=== PATIENT | female | born 1950 | race Two or more races ===

== ENCOUNTER 2017-07-21 19:54 | Emergency (ER) | payer MEDICARE ==
[~2017-07-21] VITALS: Ht 154.9 cm; Wt 77.1 kg
[2017-07-21 20:27] LABS: Basophils # (auto) 0 uL; Basophils % (auto) 0.5 % (0.0-2.0); CONDITION Y; Eosinophils # (auto) 0.4 uL; Hemoglobin 13.8 g/dL (12.2-16.2); SUSPECT SEE PRINTOUT
[2017-07-21 20:33] LABS: Eosinophils % (auto) 5.7 % (0.0-7.0); Hematocrit 41.5 % (36.0-46.0); Lymphocytes # (auto) 1.5 uL; Lymphocytes % (auto) 22.9 % (10.0-50.0); Mean Corpuscular Hemoglobin 30.1 pg (28.0-32.0); Mean Corpuscular Hgb Conc. 33.3 g/dL (32.0-36.0); Mean Corpuscular Volume 90.2 fL (80.0-100.0); Mean Platelet Volume 11.3 fL (7.4-10.4); Monocytes % (auto) 14.9 % (0.0-12.0); Neutrophils # (auto) 3.7 uL; Platelet Count (auto) 92 10^3/uL (140-450); Red Cell Distribution Width 15.4 % (11.6-16.0); White Blood Cell 6.7 10^3/uL (4.4-10.8)
[2017-07-21 20:44] LABS: INR 0.95 (0.9-1.15); Prothrombin Time 10.4 sec (9.37-12.3)
[2017-07-21 20:48] LABS: Albumin 3.6 g/dL (3.4-5.0); Amylase 14 U/L (25-115); Anion Gap 10 (5-15); Aspartate Aminotransferase 19 U/L (15-37); BUN/Creatinine Ratio 18.8; Blood Urea Nitrogen 12 mg/dL (7-18); Carbon Dioxide 21 mmol/L (21-32); Chloride 113 mmol/L (98-107); GFR African American 119 mL/min; GFR Non-African American 98 mL/min; Glucose 93 mg/dL (74-106); Potassium 3.9 mmol/L (3.5-5.1); Sodium 144 mmol/L (136-145)
[2017-07-21 20:53] LABS: Alkaline Phosphatase 79 U/L (45-117); Bilirubin, Total 0.3 mg/dL (0.2-1.0); Total Protein 7.5 g/dL (6.4-8.2)
[2017-07-21 21:27] LABS: Urine Bilirubin Negative (Negative); Urine Blood Negative /uL (Negative); Urine Color Yellow (Yellow); Urine Glucose Normal (Normal); Urine Ketone Negative (Negative); Urine Mucus FEW (None Seen); Urine Nitrite Negative (Negative); Urine RBC <1 /hpf (0 - 4); Urine Squamous Epithelial Cell FEW /hpf (<5); Urine Urobilinogen Normal (Negative); Urine pH 5.5 (5.0-8.0)
[2017-07-21 21:45] LABS: Giant Platelets Few; Large Platelets FEW; Platelet Estimate Decreased
[2017-07-22] MEDS ORDERED: ONDANSETRON HCL 4 MG/2 ML VIAL IV ONE (04:45)
[2017-07-22] MEDS ORDERED: metroNIDAZOLE 500 MG TAB PO ONE (04:45)
[2017-07-22] MEDS ORDERED: SODIUM CHLORIDE 0.9% 1,000 ML IV ONE (04:45)
[2017-07-22 05:12] VITALS: BP 140/79
== END 2017-07-22 06:31 | disposition home or self-care (01) ==
LOC: ER 20:00
DX: K57.30 Diverticulosis of large intestine without perforation or abscess without bleeding (principal); K52.9 Noninfective gastroenteritis and colitis, unspecified; Z88.0 Allergy status to penicillin; Z88.1 Allergy status to other antibiotic agents; M06.9 Rheumatoid arthritis, unspecified; M32.9 Systemic lupus erythematosus, unspecified
CPT/HCPCS: 36415; 74176; 80053; 81001; 82150; 83690; 84484; 85025; 85610; 85730; 87045; 87493; 87899; 93005; 96361; 96374; 99285; J2405

== ENCOUNTER → 2022-01-16 | Day surgery (SDC) | payer OTHER ==
[~2022-01-16] VITALS: Ht 149.9 cm; Wt 68.0 kg
[~2022-01-16] MED LIST: BUPIVACAINE W/ EPINEPH 0.25% INJ 50ML MDV ONE; CLINDAMYCIN 600MG IV 50 ML IV ONE; DexAMETHasone SOD PHOS 10MG/1ML VIAL INJ ONE; EZET10TA22 PO; GABA100C9 PO; HYDROmorphone HCL 2 MG/ML VL IV PRN; IOHEXOL 300 MG/ML 100ML BOTTLE IJ ONE; LABETALOL HCL 5 MG/ML 4ML SYRINGE IV PRN; LEVO25TA6 PO; LIDOCAINE W/ EPINEPHRINE 2% INJ 20ML VIAL ONE; LORA-622 PO; LOSA-39 PO; METH2.5T PO; MIDAZOLAM HCL 2MG/2ML 2ml VIAL (1mg/ml) IV PRN; MIDAZOLAM HCL 2MG/2ML 2ml VIAL (1mg/ml) ONE; MORPHINE SULFATE 4 MG/ML SYR/VIAL IV PRN; OMEP20TA PO; ONDANSETRON HCL 4 MG/2 ML VIAL IV PRN; PROPOFOL 10 MG/ML 20 ML IV ONE; ePHEDrine SULFATE 50 MG/ML AMP IV PRN; fentaNYL CITRATE 100 MCG/2 ML VL ONE
[2022-01-16 07:50] LABS: INR 0.97 (0.9-1.15)
[2022-01-16 09:19] VITALS: BP 119/54
== END | disposition home or self-care (01) ==
LOC: SUR 06:18
PROVIDERS: ATTEND Anesthesiology Pain Medicine
DX: S22.080A Wedge compression fracture of T11-T12 vertebra, initial encounter for closed fracture (principal); M80.88XA Other osteoporosis with current pathological fracture, vertebra(e), initial encounter for fracture; M54.6 Pain in thoracic spine; M54.50 Low back pain, unspecified; I10 Essential (primary) hypertension; E03.9 Hypothyroidism, unspecified; M06.9 Rheumatoid arthritis, unspecified; G89.29 Other chronic pain; Z98.890 Other specified postprocedural states; Z79.899 Other long term (current) drug therapy; Z88.0 Allergy status to penicillin; Z88.1 Allergy status to other antibiotic agents; Z88.6 Allergy status to analgesic agent; Z86.2 Personal history of diseases of the blood and blood-forming organs and certain disorders involving the immune mechanism; X58.XXXA Exposure to other specified factors, initial encounter; Y92.89 Other specified places as the place of occurrence of the external cause; Y93.89 Activity, other specified; Y99.8 Other external cause status
CPT/HCPCS: 22513; 36415; 72100; 76000; 85610; J1100; J2250; J2704; J3010; J3490; Q9967; U0003

== ENCOUNTER → 2022-08-23 | Emergency (ER) | payer OTHER ==
[~2022-08-23] MED LIST changes: -BUPIVACAINE W/ EPINEPH 0.25% INJ 50ML MDV ONE; -CLINDAMYCIN 600MG IV 50 ML IV ONE; -DexAMETHasone SOD PHOS 10MG/1ML VIAL INJ ONE; -HYDROmorphone HCL 2 MG/ML VL IV PRN; -IOHEXOL 300 MG/ML 100ML BOTTLE IJ ONE; -LABETALOL HCL 5 MG/ML 4ML SYRINGE IV PRN; -LIDOCAINE W/ EPINEPHRINE 2% INJ 20ML VIAL ONE; -MIDAZOLAM HCL 2MG/2ML 2ml VIAL (1mg/ml) IV PRN; -MIDAZOLAM HCL 2MG/2ML 2ml VIAL (1mg/ml) ONE; -MORPHINE SULFATE 4 MG/ML SYR/VIAL IV PRN; -ONDANSETRON HCL 4 MG/2 ML VIAL IV PRN; -PROPOFOL 10 MG/ML 20 ML IV ONE; -ePHEDrine SULFATE 50 MG/ML AMP IV PRN; -fentaNYL CITRATE 100 MCG/2 ML VL ONE
== END | disposition left against medical advice (07) ==
LOC: ER 00:11
DX: J11.1 Influenza due to unidentified influenza virus with other respiratory manifestations (principal); Z53.21 Procedure and treatment not carried out due to patient leaving prior to being seen by health care provider

== ENCOUNTER 2023-03-17 15:04 | Emergency (ER) | payer OTHER ==
[~2023-03-17] VITALS: Ht 149.9 cm; Wt 66.3 kg
[2023-03-17] MEDS ORDERED: HYDROcodone-ACET 5/325MG TAB PO ONE (19:45)
[2023-03-17] MEDS ORDERED: ONDANSETRON ODT 4 MG TAB PO ONE (19:45)
[2023-03-17] MEDS ORDERED: ACE3T PO (20:06)
[2023-03-17 22:57] VITALS: BP 140/79
== END 2023-03-17 22:58 | disposition home or self-care (01) ==
LOC: ER 15:04
DX: S83.92XA Sprain of unspecified site of left knee, initial encounter (principal); Z88.0 Allergy status to penicillin; Z88.2 Allergy status to sulfonamides; Z79.82 Long term (current) use of aspirin; Z79.899 Other long term (current) drug therapy; Z98.890 Other specified postprocedural states; X58.XXXA Exposure to other specified factors, initial encounter; Y93.89 Activity, other specified; Y92.89 Other specified places as the place of occurrence of the external cause; Y99.8 Other external cause status
CPT/HCPCS: 73562; 93971; 99284; Q0162

== ENCOUNTER → 2024-07-04 | Day surgery (SDC) | payer OTHER ==
[~2024-07-04] VITALS: Ht 30.5 cm; Wt 0.5 kg
[~2024-07-04] MED LIST changes: +ACE3T PO; +BUPIVACAINE 0.5% P/F INJ 10 ML VIAL ONE; +CLINDAMYCIN 600MG IV 50 ML IV ONE; +GABA-1308 PO; -GABA100C9 PO; +HYDROmorphone HCL 2 MG/ML VL/or syr IV PRN; +KETAMINE 50mg/ML 1ml syringe ONE; +KETOROLAC TROMETH 30 MG/ML 1ML VIAL IV ONE; +LIDOCAINE 1% INJ PF 5ML AMP ONE; +LIDOCAINE HCL 2% TOP JELLY 5ML TOP ONE; -LOSA-39 PO; +LOSA-535 PO; +MEPERIDINE HCL (50 MG/ML) 1 ML VIAL ONE; +METOCLOPRAMIDE HCL 5MG/ml INJ 2ml VIAL IV ONE; +MIDAZOLAM HCL 2MG/2ML 2ml VIAL (1mg/ml) ONE; +MORPHINE SULFATE INJ 2 MG/ml SYRG IV PRN; +ONDANSETRON HCL 4 MG/2 ML VIAL ONE; +PROPOFOL 10 MG/ML 20 ML IV ONE; +SODIUM CHLORIDE LOCK 10 ML ONE; +fentaNYL CITRATE 100 MCG/2 ML VL IV PRN; +fentaNYL CITRATE 100 MCG/2 ML VL ONE
[2024-07-04 10:33] VITALS: TEMP 98.2
[2024-07-04 16:35] VITALS: BP 100/58; PULSE 64; RESP 12; O2SAT 99
== END | disposition home or self-care (01) ==
LOC: SUR 07:14
PROVIDERS: ATTEND Surgery Vascular Surgery
DX: I83.91 Asymptomatic varicose veins of right lower extremity (principal); M06.9 Rheumatoid arthritis, unspecified; I10 Essential (primary) hypertension; E11.42 Type 2 diabetes mellitus with diabetic polyneuropathy; E78.5 Hyperlipidemia, unspecified; G89.29 Other chronic pain; E03.9 Hypothyroidism, unspecified; K22.70 Barrett's esophagus without dysplasia; Z79.890 Hormone replacement therapy; Z79.899 Other long term (current) drug therapy; Z96.652 Presence of left artificial knee joint; Z96.611 Presence of right artificial shoulder joint; Z90.710 Acquired absence of both cervix and uterus; Z98.890 Other specified postprocedural states; Z88.0 Allergy status to penicillin; Z88.2 Allergy status to sulfonamides; Z88.6 Allergy status to analgesic agent
CPT/HCPCS: 37765; J2175; J2250; J2405; J2704; J3010; J3490

== ENCOUNTER 2024-07-31 00:53 | Emergency (ER) | payer OTHER ==
[~2024-07-31] VITALS: Ht 149.9 cm; Wt 67.0 kg
[~2024-07-31 00:53] MED LIST changes: -BUPIVACAINE 0.5% P/F INJ 10 ML VIAL ONE; -CLINDAMYCIN 600MG IV 50 ML IV ONE; -HYDROmorphone HCL 2 MG/ML VL/or syr IV PRN; -KETAMINE 50mg/ML 1ml syringe ONE; -KETOROLAC TROMETH 30 MG/ML 1ML VIAL IV ONE; -LIDOCAINE 1% INJ PF 5ML AMP ONE; -LIDOCAINE HCL 2% TOP JELLY 5ML TOP ONE; -MEPERIDINE HCL (50 MG/ML) 1 ML VIAL ONE; -METOCLOPRAMIDE HCL 5MG/ml INJ 2ml VIAL IV ONE; -MIDAZOLAM HCL 2MG/2ML 2ml VIAL (1mg/ml) ONE; -MORPHINE SULFATE INJ 2 MG/ml SYRG IV PRN; -ONDANSETRON HCL 4 MG/2 ML VIAL ONE; -PROPOFOL 10 MG/ML 20 ML IV ONE; -SODIUM CHLORIDE LOCK 10 ML ONE; -fentaNYL CITRATE 100 MCG/2 ML VL IV PRN; -fentaNYL CITRATE 100 MCG/2 ML VL ONE
[2024-07-31] MEDS ORDERED: HYDR-4902 PO (02:42)
[2024-07-31] MEDS: KETOROLAC TROMETH 30 MG/ML 1ML VIAL IM ONE (02:43)
[2024-07-31 03:17] VITALS: BP 148/58; PULSE 68; RESP 18; TEMP 98.1; O2SAT 98
[2024-08-01] MEDS ORDERED: HYDR-4902 PO (19:08)
== END 2024-07-31 03:16 | disposition home or self-care (01) ==
LOC: ER 00:53
DX: M77.9 Enthesopathy, unspecified (principal); I10 Essential (primary) hypertension; Z88.0 Allergy status to penicillin; Z88.2 Allergy status to sulfonamides
CPT/HCPCS: 96372; 99283; J1885